=== PATIENT | female | born 1965 | race Caucasian/White ===

== ENCOUNTER → 2017-05-15 | Outpatient (CLI) | payer BC | LOC: GMAB 14:10 | PROVIDERS: ATTEND Family Medicine | DX: Z00.01 Encounter for general adult medical examination with abnormal findings (principal) ==

== ENCOUNTER → 2018-10-16 | Outpatient (CLI) | payer BC ==
--- NOTE | 2018-10-16 15:17 | RAD ---
Procedure: XR RIGHT HAND 3 OR MORE VIEWS Exam Date: 10/16/2018 Ordering Provider: Wm Brannon Clinical Indication: M25.531 Comparison: None Findings/impression: There is no acute fracture or dislocation. There is ulnar plus variance which can result in ulnar impaction syndrome. There is no radiopaque foreign body. There is no subcutaneous gas. Electronically signed by: Alex Bradley MD 10/16/2018 3:15 PM CDT
== END ==
LOC: RAD 08:29
PROVIDERS: ATTEND Orthopaedic Surgery
DX: M79.641 Pain in right hand (principal); M25.531 Pain in right wrist

== ENCOUNTER → 2018-12-01 | Outpatient (CLI) | payer BC | LOC: GMATM 14:59 | PROVIDERS: ATTEND Nurse Practitioner Family | DX: R42 Dizziness and giddiness (principal) ==

== ENCOUNTER → 2018-12-31 | Outpatient (CLI) | payer BC | LOC: GMAE 11:46 | PROVIDERS: ATTEND Family Medicine | DX: Z00.00 Encounter for general adult medical examination without abnormal findings (principal) ==

== ENCOUNTER → 2019-07-02 | Outpatient (CLI) | payer BC | LOC: GMAE 11:22 | PROVIDERS: ATTEND Family Medicine | DX: E03.9 Hypothyroidism, unspecified (principal); I10 Essential (primary) hypertension; E78.2 Mixed hyperlipidemia ==

== ENCOUNTER → 2019-07-14 | Outpatient (CLI) | payer BC ==
--- NOTE | 2019-07-15 09:46 | CT ---
EXAM DESCRIPTION: Cardiac Calcium Scoring Screen: Computed Tomography. CLINICAL HISTORY: Coronary Artery Calcium Scoring COMPARISON: None. TECHNIQUE: Spiral-axial scans at 2.5 x 0.4 mm intervals through the coronary arteries without IV contrast. Special algorithm was used, and cardiac gating. No reconstructions. Total Exam DLP: 110 mGy-cm. This exam was performed according to our departmental CT dose-optimization program which includes automated exposure control, adjustment of the mA and/or kV according to patient size and/or use of iterative reconstruction technique; to reduce radiation dose to as low as reasonably achievable (ALARA). Some images may have been skipped or repeated due to the heart rhythm or respiration. FINDINGS: The patient has a total Agatston calcium score of 4. This places the patient in the 60th percentile in comparison to a group of patients asymptomatic for coronary artery disease with the same age and gender. This means that 60% of females, ages 56-60, have calcium scores lower than the patient. Calcium was visualized in the left main coronary artery. The included mediastinum, bilateral rolly, and included juan-hilar lung show a moderate sized hiatal hernia.. IMPRESSION: 1. Total coronary artery calcium score of 4. 60th percentile for age and gender. See above discussion. 2. The included mediastinum, lung, and juan-hilar areas demonstrated a moderate-sized hiatal hernia.. Electronically signed by: George Wynn MD 07/15/2019 9:44 AM CDT
== END ==
LOC: CT 10:43
PROVIDERS: ATTEND Family Medicine
DX: Z13.6 Encounter for screening for cardiovascular disorders (principal); K44.9 Diaphragmatic hernia without obstruction or gangrene

== ENCOUNTER → 2019-10-21 | Outpatient (CLI) | payer BC | END | disposition home or self-care (01) | LOC: GMAE 14:39 | PROVIDERS: ATTEND Family Medicine | DX: E03.9 Hypothyroidism, unspecified (principal) ==

== ENCOUNTER → 2019-11-30 | Outpatient (CLI) | payer BC | LOC: GMAE 17:00 | PROVIDERS: ATTEND Family Medicine | DX: N39.0 Urinary tract infection, site not specified (principal) ==